=== PATIENT | male | born 1975 ===

== ENCOUNTER 2021-01-11 09:00 | Inpatient (IN) | payer OTHER ==
[~2021-01-11] VITALS: Ht 175.3 cm; Wt 127.5 kg
[2021-01-11] MEDS ORDERED: CRESTOR10 MG PO (10:17)
[2021-01-11] MEDS ORDERED: COZAAR50 MG PO (10:17)
[2021-01-11] MEDS ORDERED: FENOFIBRATE134 MG PO (10:17)
[2021-01-11] MEDS ORDERED: HYDROCHLOROTHIA25 MG PO (10:18)
[2021-01-17] MEDS ORDERED: FENOFIBRIC ACI135 MG (13:39)
[2021-01-17] MEDS ORDERED: AZELASTIN-FLUTI23 GM (13:39)
[2021-01-17] MEDS ORDERED: METFORMIN HCL500 M1 (13:39)
[2021-01-20] MEDS ORDERED: ULTRAM50 MG PO (09:00)
[2021-01-20] MEDS ORDERED: NEURONTIN600 M1 PO (09:00)
[2021-01-20] MEDS ORDERED: TYLENOL ARTHRI650 MG PO (09:00)
== END 2021-01-20 14:29 | disposition home or self-care (01) | DRG 355 ==
LOC: SURH 01-17 09:00 → O/R 01-17 10:03 → SURG 01-17 10:03 → SURH 01-17 12:00 → SURG 01-17 21:04 → SURH 01-19 14:59
PROVIDERS: ADMIT Surgery; ATTEND Surgery
PROC: 0WJF4ZZ Inspection of Abdominal Wall, Percutaneous Endoscopic Approach (ICD-10-PCS; 2021-01-17)
PROC: 0WUF0JZ Supplement Abdominal Wall with Synthetic Substitute, Open Approach (ICD-10-PCS; principal; 2021-01-17 12:00)
DX: K43.0 Incisional hernia with obstruction, without gangrene (principal); K42.0 Umbilical hernia with obstruction, without gangrene; Z53.31 Laparoscopic surgical procedure converted to open procedure; I10 Essential (primary) hypertension; E78.5 Hyperlipidemia, unspecified; E66.9 Obesity, unspecified; G47.33 Obstructive sleep apnea (adult) (pediatric); Z93.2 Ileostomy status